=== PATIENT | female | born 1995 ===

== ENCOUNTER 2021-07-14 01:06 | Emergency (ER) | payer SELFPAY ==
[2021-07-14] MEDS ORDERED: TETANUS,DIPH,PERTUSS(ACELL) VACCINE 0.5 ML SYRINGE IM ONE (02:49)
[2021-07-14] MEDS ORDERED: LIDOCAINE-MPF (1%) 10 MG/1 ML VIAL 5 ML INFILTRATI ONE (02:49)
[2021-07-14] MEDS ORDERED: ACETAMINOPHEN 500 MG TAB PO ONE (02:49)
[2021-07-14 02:54] VITALS: BP 96/62
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
== END 2021-07-14 04:29 | disposition home or self-care (01) ==
LOC: ED 01:06
DX: S81.811A Laceration without foreign body, right lower leg, initial encounter (principal); W26.0XXA Contact with knife, initial encounter; Y93.89 Activity, other specified; Y92.89 Other specified places as the place of occurrence of the external cause; Y99.8 Other external cause status
CPT/HCPCS: 12002; 90471; 90715; 99282; J3490